=== PATIENT | male | born 1975 | race Two or more races ===

== ENCOUNTER 2024-06-18 22:24 | Emergency (ER) | payer OTHER ==
[~2024-06-18] VITALS: Ht 160 cm; Wt 87.1 kg
[2024-06-19 00:30] VITALS: BP 150/84; PULSE 70; RESP 18; TEMP 97.9; O2SAT 98
[2024-06-19] MEDS ORDERED: AUG875T PO (00:42)
[2024-06-19] MEDS ORDERED: IBUP-1456 PO (00:42)
--- NOTE | 2024-06-19 00:42 | ED.PDOC ---
Eye-HPI HPI Comments This is a 49-year-old male presents to the ED chief complaint dental pain. Tooth pain right upper jaw times 24 hours. Arrives as throbbing achy in nature 9/10 on pain scale nonradiating type pain. Has tried [id number] Tylenol or Motrin with little relief. Denies fevers, difficulty breathing, shortness of breath, difficulty swallowing, nausea or vomiting. Chief Complaint: Tooth Pain Time Seen by MD: 22:33 Reviewed Notes: Nurses Notes, Medications, Allergies Allergies: Coded Allergies: NO KNOWN ALLERGIES (Unverified , 06/18/24) Home Meds Active Scripts Ibuprofen (Ibuprofen) 800 Mg Tab, 1 TAB PO TID for 5 Days, #15 TAB Prov:OUMAR GARRIDO 06/19/24 Amoxicillin & Pot Clavulanate (AUGMENTIN TABLET) 875 Mg Tb, 1 TAB PO BID for 7 Days, #14 TAB Prov:OUMAR GARRIDO 06/19/24 Mode of Arrival: Ambulatory Past Medical History PAST MEDICAL HISTORY: Denies Surgical History: Denies all surgeries Family History Family History: Reviewed,noncontributory to illness Constitutional: denies: chills, diaphoresis, fatigue, fever, malaise, sweats, weakness, others EENTM: reports: others (Dental pain); denies: blurred vision, double vision, ear bleeding, ear discharge, ear drainage, ear pain, ear ringing, eye pain, eye redness, hearing loss, mouth pain, mouth swelling, nasal discharge, nose bleeding, nose congestion, nose pain, photophobia, tearing, throat pain, throat swelling, voice changes Respiratory: denies: cough, hemoptysis, orthopnea, SOB at rest, shortness of breath, SOB with excertion, stridor, wheezing, others Cardiovascular: denies: chest pain, dizzy spells, diaphoresis, Dyspnea on exertion, edema, irregular heart beat, left arm pain, lightheadedness, palpitations, PND, syncope, others Gastrointestinal: denies: abdomen distended, abdominal pain, blood streaked bowels, constipated, diarrhea, dysphagia, difficulty swallowing, hematemesis, melena, nausea, poor appetite, poor fluid intake, rectal bleeding, rectal pain, vomiting, others Genitourinary: denies: burning, dysuria, flank pain, frequency, hematuria, incontinence, penile discharge, penile sore, pain, testicle pain, testicle swelling, urgency, others Neurological: denies: dizziness, fainting, headache, left sided numbness, left sided weakness, numbness, paresthesia, pre-existing deficit, right sided numbness, right sided weakness, seizure, speech problems, tingling, tremors, weakness, others Musculoskeletal: denies: back pain, gout, joint pain, joint swelling, muscle pain, muscle stiffness, neck pain, others Integumetry: denies: bruises, change in color, change in hair/nails, dryness, laceration, lesions, lumps, rash, wounds, others Hematologic/Lymphatic: denies: anemia, blood clots, easy bleeding, easy bruising, swollen glands, others Endocrine: denies: excessive hunger, excessive sweating, excessive thirst, excessive urination, flushing, intolerance to cold, intolerance to heat, unexplained weight gain, unexplained weight loss, others Psychiatric: denies: anxiety, bipolar disorder, depression, hopeless, panic disorder, schizophrenia, sleepless, suicidal, others Physical Exam General Appearance: No Apparent Distress, Normal HEENT: Normal ENT Inspection, Pharynx Normal, TMs Normal, Other (Molar 17. With noted decay low surrounded with mild gum erythema and edema.) Neck: Full Range of Motion, Non-Tender, Normal, Normal Inspection Respiratory: Chest Non-Tender, Lungs Clear, No Accessory Muscle Use, No Respiratory Distress, Normal Breath Sounds Cardiovascular: No Edema, No JVD, No Murmur, No Gallop, Normal Peripheral Pulses, Regular Rate/Rhythm Breast Exam: Deferred Gastrointestinal: Non Tender, Soft Genitalia: Deferred Pelvic: Deferred Rectal: Deferred Extremities: Non-tender Musculoskeletal : Apperance: Normal Neurologic: Alert, audio visual manager II-XII nml as Tested, No Motor Deficits, Normal Affect, Normal Mood, No Sensory Deficits Cerebellar Function: Normal Reflexes: Normal Skin: Dry, Normal Color, Warm Lymphatic: No Adenopathy Was a procedure done? Was a procedure done?: No EENT DIFF Eye: N/A Ear: Dental X-Ray, Labs, Meds, VS Vital Signs Date Time Temp Pulse Resp B/P (MAP) Pulse Ox O2 Delivery O2 Flow Rate FiO2 06/19/24 00:30 70 18 98 Room Air* 0 21 06/19/24 00:30 97.9 70 20 150/84 (106) 98 97.9 06/18/24 22:50 97.9 67 20 150/84 (106) 96 Current Medications Medications (Trade) Dose Ordered Sig/Chantal Route Start Time Stop Time Status Last Admin Ketorolac Tromethamine (Toradol Injection) 60 mg ONCE ONCE IM 06/19/24 00:45 06/19/24 00:46 DC 06/19/24 00:45 X-Ray, Labs, Meds, VS Comment Patient given Toradol 60 mg IM for the pain. He notes improvement in pain requesting discharge at this time. Start Augmentin twice daily x7 days 800 mg of ibuprofen t.i.d. Advised to follow up with dental for resolution. ER return precautions provided patient indicated in the standing agrees with discharge plan of care. Time of 1ST Reevaluation: 01:25 Reevaluation 1ST: Improved Patient Education/Counseling: Diagnosis, Treatment, Prognosis, Need For Follow Up Family Education/Counseling: No Family Present Departure 1 Departure Time of Disposition: 00:40 Impression: Primary Impression: Dental infection Disposition: 01 HOME / SELF CARE / HOMELESS Condition: Stable e-Prescriptions Ibuprofen (Ibuprofen) 800 Mg Tab 1 TAB PO TID for 5 Days, #15 TAB Prov: OUMAR GARRIDO 06/19/24 Amoxicillin & Pot Clavulanate (AUGMENTIN TABLET) 875 Mg Tb 1 TAB PO BID for 7 Days, #14 TAB Prov: OUMAR GARRIDO 06/19/24 Discharged With: Self Critical Care Note Critical Care Time?: No Stability Stability form required: No OUMAR GARRIDO Jun 19, 2024 00:42
[2024-06-19] MEDS: KETOROLAC TROMETH 60MG/2ML VIAL IM ONE (00:45)
== END 2024-06-19 01:20 | disposition home or self-care (01) ==
LOC: ER 22:24
DX: K04.7 Periapical abscess without sinus (principal); Z79.1 Long term (current) use of non-steroidal anti-inflammatories (NSAID); Z79.899 Other long term (current) drug therapy
CPT/HCPCS: 96372; 99283; J1885